=== PATIENT | male | born 1970 | race Caucasian/White ===

== ENCOUNTER 2016-08-25 12:14 | Emergency (ER) | payer OTHER ==
--- NOTE | ~2016-08-25 | US85 ---
[facility] A Service [facility] RADIOLOGY TEXT RESULTS PATIENT: LORA DAI LOCATION: [place]A : [birth year] UNIT #: [id number] AGE: [address]: Buffy Wright APRN SEX: M ORDER DR: [id number] [facility] [address]. [place], [place] [address] [id number] MR#: [id number] Acc #: [id number] NAME: LORA DAI. : 1970 SEX: M STUDY DATE/TIME: 08/25/2016 13:13 UNIT: MATRHA ROOM: STUDY DESCRIPTION: Informed [employer] Stdy Attending Physician: Buffy Wright A.P.R.N. Ordering Physician: Prince Pacheco M.D. Primary Care Physician: Primary Care Physician No MEDICAL IMAGING REPORT This report is preliminary unless electronic signature is present EXAM Left lower extremity venous ultrasound INDICATION Left lower extremity pain and swelling for 3 weeks. TECHNIQUE Venous ultrasound examination of the left lower extremity was performed using grayscale, spectral Doppler and color flow Doppler imaging. FINDINGS The examination is negative. There is no evidence of left lower extremity deep venous thrombus from the groin to the lower calf. Visualized greater saphenous vein is also patent. IMPRESSION Negative examination. No evidence of left lower extremity deep venous thrombosis. Dictated by... Vlad Murray M.D. THIS IS AN ELECTRONICALLY VERIFIED REPORT Vlad Murray M.D. at 08/25/2016 2:31 PM LIANA/yuriy TD: 08/25/2016 14:03 JOB #: [id number] [facility] A Service [facility] RADIOLOGY TEXT RESULTS PATIENT: LORA DAI LOCATION: [place] : [birth year] UNIT #: [id number] AGE: [address]: Buffy Wright APRN SEX: M ORDER DR: MEDICAL IMAGING REPORT Page 1 of 1 COPY
[~2016-08-25 12:14] MED LIST: ASPIRIN81 M2 PO; FLEXERIL10 M1 PO; LISINOPRIL10 MG PO; LOPRESSOR; PERCOCET PO; PERCOCET5/325 PO; SIMVASTATIN40 MG PO
== END 2016-08-25 14:55 | disposition home or self-care (01) ==
LOC: CED 12:14
DX: M79.662 Pain in left lower leg (principal); R00.0 Tachycardia, unspecified; I10 Essential (primary) hypertension
CPT/HCPCS: 93971; 99284